=== PATIENT | male | born 1965 | race Caucasian/White ===

== ENCOUNTER 2020-08-30 09:41 | Observation (INO) | payer OTHER, SELFPAY ==
[2020-08-30] VITALS (12 sets, daily range): BP systolic 151–177; BP diastolic 82–94; PULSE 61–72; RESP 17–18; TEMP 36.4–36.8; O2SAT 96–97; BMI 29.2
[2020-08-30 11:08] LABS: Glucose Point of Care 318 mg/dL (70-110)
--- NOTE | 2020-08-30 12:44 | PM.HP ---
Providers/Chief Complaint Admitting Physician: Annmarie Au MD Chief Complaint: TIA History of Present Illness Vadim Dickey Jr is a 54 year old male With a past medical history significant for diabetes mellitus, gout, and hypertension who was seen earlier today at [facility] with complaint of left facial and upper extremity numbness. Patient stated that this has been intermittently happening for the past few weeks. Lasting for short period and resolving. Stated today it was associated with an episode of dizziness. Denies any focal weakness. No facial droop. Denies any visual disturbance, no LOC. In emergency room patient had a neuro workup which included a CT head without contrast -no acute intracranial abnormality and CT angio of head and neck which showed left posterior cerebral artery P1 segment to be diminutive in caliber, left P2, P3 segments were apparent to be either hypoplastic or occluded. No large vessel aneurysm or occlusion was in neck. Patient NIH on arrival was 0. At time of my eval patient stated his symptoms had completely resolved. Denied any chest pain, dyspnea, abdominal pain. Review of Systems General: Reports: 10 or more systems reviewed and unremarkable except in HPI and below Medications/Allergies Home Medications Medication Instructions Recorded Confirmed Last Taken Type allopurinol [Zyloprim] 100 mg PO DAILY 08/30/20 08/30/20 08/29/20 History fluoxetine [Prozac] 40 mg PO DAILY 08/30/20 08/30/20 08/29/20 History glimepiride [Amaryl] 1 mg PO DAILY 08/30/20 08/30/20 08/29/20 History glimepiride [Amaryl] 2 mg PO DAILY 08/30/20 08/30/20 08/29/20 History irbesartan [Avapro] 300 mg PO DAILY 08/30/20 08/30/20 08/29/20 History pioglitazone [Actos] 15 mg PO DAILY 08/30/20 08/30/20 08/29/20 History Allergies Allergy/AdvReac Type Severity Reaction Status Date / Time iron Allergy ALGY-Anaphy Verified 08/30/20 10:56 laxis ofloxacin Allergy ALGY-Anaphy Verified 08/30/20 10:56 laxis PFSH Acute PFSH: Medical History (Updated 08/30/20 @ 17:23 by Luis Moran MD) Diabetes mellitus, type II Gout Hypertension Neuropathy Surgical History History of hernia repair S/P skin biopsy Family History Grandfather Cancer Other Diabetes Heart disease Hypercholesteremia Social History (Updated 08/30/20 @ 11:04 by Luly Palomares, ESTHER) Second hand smoke exposure: No Smoking risk assessment/counseling performed?: No Alcohol intake: current Alcohol intake frequency: few times a week Alcohol type: beer and hard liquor Desire information about alcohol rehabilitation?: No Vitals/I&O/Wt Weight last 48 hrs Weight 95.254 kg Physical Exam Narrative: EXAM NARRATIVE: General : Alert, awake, oriented x 3 HEENT: grossly unremarkable CVS; RRR Chest; CTABL Abd : soft, nt, nd Ext : no edema Neuro: Cn-12 intact, MS 5/5, no sensory deficits. Data : 08/30/20 14:11 08/30/20 14:11 A&P Assessment and plan (1) TIA (transient ischemic attack): Will rule out CVA - given onset of symptom unlikely MRI Brain w/o contrast in am Asa 81 mg PO daily Lipitor high dose for now - lipid panel in am ECHO ordered CTA - Noted in HPI Bedside swallow -if no aspiration risk - start diabetic/cardiac diet PT/OT consult Check A1c in AM NIH/Neuro-checks as ordered Status: Acute (2) Hypertension: Will allow for permissive hypertension for 24hr after the start of current episode Treat if SBP > 220 or DBP> 120 Status: Acute (3) Diabetes mellitus: With hyperglycemia Sliding scale insulin A1c in am Diabetic diet Status: Acute (4) Gout: Allopurinol 100 mg PO daily Status: Acute (5) Depression: Continue Prozac 40 mg PO daily Status: Acute (6) DVT prophylaxis: Lovenox 40 mg SQ daily Status: Acute Attestations Medical Necessity Statement*: Anticipate Less than 2 midnight stay in hospital for eval of TIA/cVa work up Time Spent in Patient Care: Greater than 35 minutes (>than 50% of time spent in counselling and/or direct pt care on unit). Coding Level of Care Code Acute Physician Ophthalmologist for [facility] Fwd Diagnoses TIA (transient ischemic attack) G45.9 Hypertension I10 Diabetes mellitus E11.9 Gout M10.9 Depression F32.9 DVT prophylaxis Z29.9
[2020-08-30 15:01] LABS: Basophils # 0.1 10^3/uL (0.0-0.1); Basophils % 0.6 %; Eosinophils # 0.1 10^3/uL (0.0-0.8); Eosinophils % 1.3 %; Hematocrit 45.4 % (42.0-52.0); Hemoglobin 14.7 g/dL (11.7-16.6); Lymphocytes # 2.5 10^3/uL (0.8-4.8); Lymphocytes % 25.4 %; Mean Corpuscular HGB Conc 32.4 g/dL (30.0-36.0); Mean Corpuscular Hemoglobin 27.9 pg (28.0-34.0); Mean Corpuscular Volume 86.1 fL (80-94); Mean Platelet Volume 10.2 fL (7.4-10.4); Monocytes # 0.7 10^3/uL (0.2-0.9); Monocytes % 6.7 %; Neutrophils # 6.34 10^3/uL (1.8-7.7); Nucleated Red Blood Cells % 0 %; Platelet Count 344 10^3/cmm (130-400); Red Blood Count 5.27 10^6/uL (4.1-5.3); Red Cell Distribution Width 12.2 % (12.1-15.1); White Blood Count 9.8 10^3/uL (4.0-10.0)
[2020-08-30 15:24] LABS: Alanine Aminotransferase 33 U/L (0-41); Alkaline Phosphatase 85 IU/L (40-130); Aspartate Amino Transferase 26 U/L (0-40); Blood Urea Nitrogen 12 mg/dL (6-20); Calcium 8.4 mg/dL (8.5-10.5); Carbon Dioxide 25 mmol/L (22-29); Chloride 101 mmol/L (98-107); Creatinine Clr Calc Pharmacy 138.8027; Globulin 2.7 g/dL (1.3-4.6); Glomerular Filtration Rate 116.7 mL/min (90-130); Glucose 329 mg/dL (65-115); Osmolality Calculated 301 mOsm/kg (285-295); Sodium 139 mmol/L (136-145); Total Bilirubin 0.2 mg/dL (0.15-1.2); Total Protein 6.7 g/dL (6.6-8.7)
[2020-08-30 15:28] LABS: Anion Gap 17.1 (5-19); Potassium 4.1 mmol/L (3.5-5.1)
[2020-08-30] MEDS: aspirin 81 mg EC Tablet PO (15:59)
[2020-08-30] MEDS: heparin 5,000 unit/mL INJ 1 mL 5000 UNIT SUBCUT (15:59)
[2020-08-30 17:24] LABS: Glucose Point of Care 175 mg/dL (70-110)
[2020-08-30] MEDS: atorvastatin 40 mg Tablet 80 MG PO (20:29)
[2020-08-30 20:58] LABS: Glucose Point of Care 245 mg/dL (70-110)
--- NOTE | 2020-08-30 21:51 | PC.NURSE ---
Upon 1999 rounding pt told nurse he had taken a dose of his home medication Glimepiride 1 mg PO with his dinner meal. Nurse explained hospital policy requires that no home medications be kept in patient rooms. The patient willingly turned over his medication to the nurse and the nurse explained his medications would be kept in the locked pyxis with his patient label and returned to him at discharge. This nurse notified shift foreman Hospitalist Dr. Au that PT had taken home medication and Dr. Au's orders were to decrease sliding scale dose of Novolog by half for this one administration. PT blood glucose noted to be 245, per sliding scale pt would normally receive 8 units of Novolog, Dr. Au ordered dose to be decreased to 4 units.
[2020-08-31] VITALS (7 sets, daily range): BP systolic 159–175; BP diastolic 77–92; PULSE 65–85; RESP 16–18; TEMP 36.4–37.7; O2SAT 95–99
[2020-08-31] MEDS: acetaminophen 325 mg Tablet 650 MG PO (00:16)
[2020-08-31] MEDS: heparin 5,000 unit/mL INJ 1 mL 5000 UNIT SUBCUT ×2 (03:31→15:08)
--- NOTE | 2020-08-31 06:00 | USCV_ITS ---
Vadim Dickey Age: 54 Gender: M : 1965 Exam Date: 08/31/2020 06:23 Ordering Phys: Luis Moran MD Technologist: Exam Location: [facility] [place] Indication: TIA BP: 175 / 77 HR: 64 Rhythm: Sinus Technical Quality: Fair MEASUREMENTS (Male / Female) Normal Values 2D ECHO LV Diastolic Diameter PLAX 3.6 cm 4.2 - 5.9 / 3.9 - 5.3 cm LV Systolic Diameter PLAX 2.1 cm IVS Diastolic Thickness 1.1 cm 0.6 - 1.0 / 0.6 - 0.9 cm IVS Systolic Thickness 1.2 cm LVPW Diastolic Thickness 1.0 cm 0.6 - 1.0 / 0.6 - 0.9 cm LVPW Systolic Thickness 1.4 cm LVOT Diameter 2.2 cm LV Ejection Fraction 2D Teich 74.4 % LV Ejection Fraction MOD 2C 46.3 % LV Ejection Fraction 2C AL 47.2 % LA Diameter 3.2 cm LA Width 3.9 cm LA Height 4.9 cm RA Width 4.0 cm RA Height 5.5 cm Aorta at Sinotubular Diameter 2.7 cm DOPPLER AV Peak Velocity 119.0 cm/s LVOT Peak Velocity 101.0 cm/s AV Area Cont Eq vti 3.8 cm squared AV Area Cont Eq pk 3.1 cm squared MV Area PHT 3.7 cm squared Mitral E to A Ratio 0.8 MV E' Velocity 48.5 cm/s Mitral E to MV E' Ratio 10.1 Mitral E to LV E' Lateral Ratio 7.9 Mitral E to LV E' Septal Ratio 14.0 TR Peak Velocity 122.7 cm/s TR Peak Gradient 6.0 mmHg TV Peak E Velocity 90.0 cm/s Right Atrial Pressure 3.0 mmHg Pulmonary Artery Systolic Pressu 9.0 mmHg PV Peak Velocity 93.0 cm/s RV Acceleration Time 0.1 s FINDINGS Left Ventricle Normal left ventricular size and systolic function, EF 55 %. No regional wall motion abnormalities. Grade I/IV diastolic dysfunction (abnormal relaxation filling pattern), normal to mildly elevated filling pressures. Right Ventricle Normal right ventricular size and systolic function. Right Atrium Normal right atrial size. Left Atrium Normal left atrial size. Mitral Valve Thickened mitral valve. Aortic Valve Thickened aortic valve. Tricuspid Valve No gross abnormalities noted Pulmonic Valve No gross abnormalities noted Pericardium No pericardial effusion. Aorta Normal aortic annulus size. CONCLUSIONS Normal left ventricular size and systolic function, EF 55 %. No regional wall motion abnormalities. Grade I/IV diastolic dysfunction (abnormal relaxation filling pattern), normal to mildly elevated filling . Minimally thickened aortic and mitral valves. No significant stenotic or regurgitant lesions. There is no pericardial effusion. There are no intracardiac masses. No previous study is available for comparison. Dr Meli Yap MD [facility] (Electronically Signed) Final Date: 31 August 2020 18:32 S
--- NOTE | 2020-08-31 06:00 | USCV_ITS ---
Vadim Dickey Age: 54 Gender: M : 1965 Exam Date: 08/31/2020 06:40 Ordering Phys: Luis Moran MD Technologist: Exam Location[place] [facility] [place]: TIA Risk Factors: None Previous Vascular Surgery: Right Brachial BP: / Left Brachial BP: / Right Left Velocity (cm/s) Spectral Plaque Velocity (cm/s) Spectral Plaque Syst/Diast Broadening Syst/Diast Broadening 70.60/ 22.10 Prox CCA 51.20 / 13.60 56.45/ 16.45 Mid CCA 50.80 / 12.30 44.70/ 8.50 Distal CCA 50.00 / 12.70 54.60/ 10.90 Prox ICA 44.90 / 7.60 61.60/ 23.40 Mid ICA 61.00 / 17.40 49.90/ 12.45 Distal ICA 58.90 / 17.40 78.70 ECA 50.40 0.87 ICA/CCA 1.19 Antegrade Vertebral Antegrade 39.00/ 12.00 cm/s 50.00/ 9.00 cm/s Tri Subclavian Tri 756.0 83.00 0 FINDINGS Intimal thickening in the common carotid and internal carotid arteries bilaterally. No unstable plaques or lesions noted. Doppler flow velocities. Antegrade flow in the vertebral arteries bilaterally Technically somewhat difficult study because of the poor Doppler signals. CONCLUSIONS Intimal thickening in the common carotid internal carotid arteries bilaterally. No unstable plaques or lesions. No significant stenosis, based on the above findings Technically somewhat difficult study Dr Meli Yap MD [facility] (Electronically Signed) Final Date: 01 September 2020 09:27 S
[2020-08-31 06:34] LABS: Glucose Point of Care 148 mg/dL (70-110)
[2020-08-31 07:16] LABS: Chol HDL Ratio 5.39 mg/dL (1.0-5.00); Cholesterol 151 mg/dL (0-200); HDL Cholesterol 28 mg/dL (60-100); LDL Cholesterol Calculated 59 mg/dL (50-129); LDL HDL Ratio 2.11 RATIO (0.00-3.22); Triglycerides 319 mg/dL (0-150)
[2020-08-31] MEDS: aspirin 81 mg EC Tablet PO (07:59)
[2020-08-31 08:02] LABS: Estmated Average Glucose 214; Hemoglobin A1C 9.1 % (4.0-6.0)
--- NOTE | 2020-08-31 08:25 | PC.OT ---
OT screen completed. Pt independently ambulated from bed to bathroom, donned shoes including tying, washed hands at sink. No loss of balance, no devices needed. No further OT recommended at this time.
--- NOTE | 2020-08-31 09:55 | MRR_ITS ---
PROCEDURE INFORMATION: Exam: MR Head Without Contrast Exam date and time: 08/31/2020 9:55 AM Age: 54 years old Clinical indication: Other: TIA TECHNIQUE: Imaging protocol: MR of the head without contrast. COMPARISON: CT head wo con* [id number] 08/30/2020 12:57 AM FINDINGS: Brain: Mild cortical volume loss. Mild scattered foci of increased T2 FLAIR signal in supratentorial white matter. No diffusion restriction. No intracranial hemorrhage. Cerebral ventricles: Normal. No ventriculomegaly. Bones/joints: Unremarkable. Paranasal sinuses: Mild mucosal thickening in the frontal and ethmoid sinuses. No air-fluid level. Mastoid air cells: Normal as visualized. No mastoid effusion. Orbital cavity: Unremarkable. Soft tissues: Unremarkable. Other vasculature: Normal intracranial arterial and venous flow voids. MR/MR head wo con* [id number] IMPRESSION: 1. No acute intracranial abnormality.
--- NOTE | 2020-08-31 10:40 | PC.NUTR ---
Nutrition consult: Provided nutrition education on mini-stroke nutrition therapy as well as Carbohydrate Counting for DM. Pt was receptive to information, and may benefit from further education. Recommend outpatient RD services if consistent with plan of care. Recommend increased intake of non-starchy vegetables and high fiber foods due to pt c/o feeling hungry.
[2020-08-31 11:50] LABS: Glucose Point of Care 187 mg/dL (70-110)
--- NOTE | 2020-08-31 13:16 | PC.CHAP ---
Pastoral Care Encounter/Spiritual Assessment Type of Contact [] Declined experimental assembler visit [] Patient/Family/Request visit [] Outpatient visit [x] Follow-up visit [] Physician referral [] Code/Alert [] Routine visit [] Staff referral [] Actively dying [] Patient sleeping [] Family support [] [] Out of room [] Palliative care [] [] Receiving care in room [] Pre-surgical visit [] Trauma [] Long length of stay [] ICU visit [] Other: Relational/Emotional Strength [] Patient feels connected with others/family/visitors/staff [] Distress [] Loneliness/isolation [] Abandonment Spirituality of Patient [] Person of Renu [] Attends Mandaen of their Renu [] Believes in Prayer [] Reads Bible or Episcopal materials [] There are Spiritual issues to be addressed Precision Agriculture Technician Interventions [] Prayer [] Active listening [] Non-anxious presence [] Spiritual/emotional support [] Crisis/trauma care [] Spiritual counseling [] Bereavement support [] Provided bereavement packet [] Provided Bible/devotional materials [] Provided toy/stuffed animal, coloring book to patient or family member [] Provided Communion [] Anointing/[place] [] Salvation [] Completed spiritual assessment [] Other: Impact on Illness or Injury [] Angry [] Fearful [] Anxious [] Often cries [] Exhaustion [] Unable to work [] Unable to attend christian [] Unable to walk/stand [] Unable to read [] Unable to drive [] Unable to eat/drink [] Unable to sleep [] Unable to be with family [] Patient intubated [] Other: Summary Time spent with patient
--- NOTE | 2020-08-31 14:40 | CTR_ITS ---
PROCEDURE INFORMATION: Exam: CT Chest Without Contrast; Diagnostic Exam date and time: 08/31/2020 2:40 PM Age: 54 years old Clinical indication: Condition or disease; Lung condition and disease; Copd TECHNIQUE: Imaging protocol: Diagnostic computed tomography of the chest without contrast. Radiation optimization: All CT scans at this facility use at least one of these dose optimization techniques: automated exposure control; mA and/or kV adjustment per patient size (includes targeted exams where dose is matched to clinical indication); or iterative reconstruction. COMPARISON: No relevant prior studies available. RADIATION DOSE METRICS: Total DLP (mGy-cm): 985.21 FINDINGS: Lungs: 4 mm right middle lobe nodule, series 3, image 26. The lungs are otherwise clear. Pleural spaces: Unremarkable. No pneumothorax. No pleural effusion. Heart: Unremarkable. No cardiomegaly. No pericardial effusion. Aorta: Unremarkable. No aortic aneurysm. Lymph nodes: Unremarkable. No enlarged lymph nodes. Liver: Diffuse fatty infiltration of the liver. Pancreas: Single punctate calcification in the uncinate process of the pancreas. Otherwise unremarkable. Bones/joints: Degenerative changes of the thoracic spine with kyphosis. No compression fracture. Soft tissues: Unremarkable. CT/CT chest wo con [id number] IMPRESSION: 1. No acute finding. 2. 4 mm right middle lobe nodule. For patients at low risk (minimal or absent history of smoking and of other known risk factors), no routine follow-up is indicated. For patients at high risk (history of smoking or of other known risk factors), consider optional CT Chest at 12 months. (Reference: So) References: So Del [place], et al. Guidelines for Management of Incidental Pulmonary Nodules Detected on CT Images: From the Fleischner Society 2017. Radiology. 2017;284(1):228-243. Radiation Dose CTDIVOL = (mGy): DLP = 985.21 (mGy-cm)
--- NOTE | 2020-08-31 14:40 | CTR_ITS ---
PROCEDURE INFORMATION: Exam: CT Cervical Spine Without Contrast Exam date and time: 08/31/2020 2:40 PM Age: 54 years old Clinical indication: Numbness; Additional info: Numbness in left arm TECHNIQUE: Imaging protocol: Computed tomography images of the cervical spine without contrast. Radiation optimization: All CT scans at this facility use at least one of these dose optimization techniques: automated exposure control; mA and/or kV adjustment per patient size (includes targeted exams where dose is matched to clinical indication); or iterative reconstruction. COMPARISON: CTA Head/Neck [id number] 08/30/2020 1:04 AM RADIATION DOSE METRICS: Total DLP (mGy-cm): 767.56 FINDINGS: Vertebrae: The vertebral body alignment and stature is normal. No subluxation. The facets are intact with mild degenerative changes. C2-C3: No significant disc protrusion. No severe spinal canal stenosis. No significant neural foraminal narrowing. C3-C4: No significant disc protrusion. No severe spinal canal stenosis. No significant neural foraminal narrowing. C4-C5: Posterior disc bulge. Moderate central canal stenosis. Mild bilateral foraminal stenosis. C5-C6: Posterior disc bulge with posterior endplate spurring. Mild central canal stenosis. Moderate left and mild right foraminal stenosis. C6-C7: No disc bulge. Mild bilateral bony foraminal stenosis. C7-T1: No significant disc protrusion. No severe spinal canal stenosis. No significant neural foraminal narrowing. Soft tissues: Unremarkable. Thyroid: Low-density nodules or cysts in the right thyroid lobe measuring up to 1.0 cm. Ultrasound follow-up is not recommended. Lungs: Lung apices are normal. CT/CT cervical spin wo con* [id number] IMPRESSION: 1. No fracture or acute finding. 2. Degenerative changes at C4-C5 and C5-C6 as described. COMMENTS: Consistent with the [employer]'s Incidental Findings Committee white paper (J Am Percy Radiol 2015): In patients aged 35 years and older with an incidental thyroid nodule equal to or greater than 1.[address], MRI or extrathyroidal US, further evaluation with dedicated thyroid US is recommended for patients with normal life expectancy and without comorbidities. For smaller nodules without suspicious features, no further evaluation or follow up is recommended. Radiation Dose CTDIVOL = (mGy): DLP = 767.56 (mGy-cm)
[2020-08-31] MEDS: carvedilol 6.25 mg Tablet PO ×2 (15:18→18:27)
[2020-08-31] MEDS: losartan 50 mg Tablet 100 MG PO (15:18)
[2020-08-31 17:05] LABS: Glucose Point of Care 148 mg/dL (70-110)
--- NOTE | 2020-08-31 17:50 | PM.PN ---
Subjective Subjective: Interval history: Hospital course, labs appreciated. No acute events overnight. Patient has not had any further events of numbness. denies any nausea vomiting, headache. Vitals/I&O/Wt Last Vital Signs Temp 99.3 F 08/31/20 15:16 Pulse 84 08/31/20 15:16 Resp 18 08/31/20 15:16 BP 166/90 08/31/20 15:18 Pulse Ox 95 08/31/20 15:16 08/31/20 08/31/20 08/31/20 06:59 14:59 22:59 Intake Total 480 / 1320 720 / 720 Balance 480 / 1320 720 / 720 Weight last 48 hrs Weight 95.254 kg Physical Exam Narrative: EXAM NARRATIVE: General : Alert, awake, oriented x 3 HEENT: grossly unremarkable CVS; RRR Chest; CTABL Abd : soft, nt, nd Ext : no edema Neuro: Cn-12 intact, MS 5/5, no sensory deficits. Data : 08/30/20 14:11 08/30/20 14:11 A&P Assessment and plan (1) TIA (transient ischemic attack): Will rule out CVA - given onset of symptom unlikely Awaiting MRI. Echocardiogram done. Results awaited. Carotid Doppler done awaiting his results. Continue with aspirin, statin. Monitor lipid panel. Check HbA1c. PT/OT evaluation. Status: Acute (2) Hypertension: Goal of pressure less than 140/90 mmHg. Continue with home dose of Cozaar. Start patient on Coreg 6.25 mg twice daily. Status: Acute (3) Diabetes mellitus: HbA1c 9.1. Discussed that patient is on 3 hypoglycemics including high-dose Amaryl, pioglitazone and Metformin. Given his A1c is still more than night he requires to be on insulin. Patient states he would like to discuss with his primary care provider before starting insulin. For now continue with insulin sliding scale. Status: Acute (4) Gout: Allopurinol 100 mg PO daily Status: Acute (5) Depression: Continue Prozac 40 mg PO daily Status: Acute (6) DVT prophylaxis: Lovenox 40 mg SQ daily Status: Acute (7) Tingling of left upper extremity: Can be secondary to TIA. But cannot rule out cervical radiculopathy. Check CT cervical spine to rule out degenerative disorder, CT chest to rule out Pancoast tumor Status: Acute Attestations Medical Necessity Statement*: Patient requires further hospitalization for further management of TIA, possible cervical spondylosis while MRI is awaited Time Spent in Patient Care: Greater than 35 minutes (>than 50% of time spent in counselling and/or direct pt care on unit). Coding Level of Care Code Acute Angle Dozer Operator for g Fwd Diagnoses TIA (transient ischemic attack) G45.9 Hypertension I10 Diabetes mellitus E11.9 Gout M10.9 Depression F32.9 DVT prophylaxis Z29.9 Tingling of left upper extremity R20.2
--- NOTE | 2020-08-31 19:35 | P.DS_ITS ---
Discharge Providers Date of Admission: 08/30/20 09:41 Date of Discharge: August 31, 2020 Attending Provider at Admission: Annmarie Au MD Attending Provider at Discharge: Gómez Herrera MD Diagnoses at Discharge Discharge Diagnosis (1) TIA (transient ischemic attack): Status: Acute (2) Hypertension: Status: Acute (3) Diabetes mellitus: Status: Acute (4) Gout: Status: Acute (5) Depression: Status: Acute (6) DVT prophylaxis: Status: Acute (7) Tingling of left upper extremity: Status: Acute Reason for Visit Reason for Visit: TIA Hospital Course Hospital Course Vadim Dickey Jr is a 54 year old male With a past medical history significant for diabetes mellitus, gout, and hypertension who was seen earlier today at [facility] with complaint of left facial and upper extremity numbness. Patient stated that this has been intermittently happening for the past few weeks. Lasting for short period and resolving. Stated today it was associated with an episode of dizziness. Denies any focal weakness. No facial droop. Denies any visual disturbance, no LOC. In emergency room patient had a neuro workup which included a CT head without contrast -no acute intracranial abnormality and CT angio of head and neck which showed left posterior cerebral artery P1 segment to be diminutive in caliber, left P2, P3 segments were apparent to be either hypoplastic or occluded. No large vessel aneurysm or occlusion was in neck. Patient NIH on arrival was 0. At time of my eval patient stated his symptoms had completely resolved. Denied any chest pain, dyspnea, abdominal pain. TIA workup negative. Symptoms likely 2/2 cervical degeneration. Recommended for PT as outpatient. Found to have uncontrolled HTN and DM. Anti hypertensive adjusted. Patient advised to start on insulin as already on 3 OHAs, would want to discuss with PCP. Ut'ed in stable condition. Physical Exam Narrative: EXAM NARRATIVE: General : Alert, awake, oriented x 3 HEENT: grossly unremarkable CVS; RRR Chest; CTABL Abd : soft, nt, nd Ext : no edema Neuro: Cn-12 intact, MS 5/5, no sensory deficits. Discharge Data Data Completed and Pending: Completed Studies During Hospitalization Category Date Time Status CT cervical spin wo con* [id number] Rout ine Cat Scan 08/31/20 14:[address] chest wo con 7 1250 Routine Cat Scan 08/31/20 14:40 Completed MR head wo con* 7 0551 Routine MRI 08/31/20 09:55 Completed CV echo complete* [id number] Routine Ultrasound 08/31/20 06:00 Completed Pending at discharge Category Date Time Status CV carotid duplex BI* [id number] Routine Ultrasound 08/31/20 06:00 Taken Labs from last 24 hours 08/31/20 08/31/20 08/31/20 16:55 11:44 06:30 POC Glucose 148 H 187 H 148 H Estimat Average Gl ucose Hemoglobin A1c Triglycerides Cholesterol LDL Cholesterol, C alc HDL Cholesterol LDL/HDL Ratio Cholesterol/HDL Ra santiago 08/31/20 08/31/20 08/30/20 05:51 05:51 20:53 POC Glucose 245 H Estimat Average Gl ucose Cancelled Hemoglobin A1c Cancelled Triglycerides 319 H Cholesterol 151 LDL Cholesterol, C alc 59 HDL Cholesterol 28 L LDL/HDL Ratio 2.11 Cholesterol/HDL Ra santiago 5.39 H 08/30/20 14:11 POC Glucose Estimat Average Gl ucose 214 Hemoglobin A1c 9.1 H Triglycerides Cholesterol LDL Cholesterol, C alc HDL Cholesterol LDL/HDL Ratio Cholesterol/HDL Ra santiago Addt'l Data from Hospital Stay: Laboratory Results WBC 9.8 10^3/uL (4.0- 10.0) 08/30/20 14:11 RBC 5.27 10^6/uL (4.1 -5.3) 08/30/20 14:11 Hgb 14.7 g/dL (11.7-1 6.6) 08/30/20 14:11 Hct 45.4 % (42.0-52.0 ) 08/30/20 14:11 MCV 86.1 fL (80-94) 08/30/20 14:11 MCH 27.9 pg (28.0-34. 0) L 08/30/20 14:11 MCHC 32.4 g/dL (30.0-3 6.0) 08/30/20 14:11 RDW 12.2 % (12.1-15.1 ) 08/30/20 14:11 Plt Count 344 10^3/cmm (130 -400) 08/30/20 14:11 MPV 10.2 fL (7.4-10.4 ) 08/30/20 14:11 Neut % (Auto) 65.0 % 08/30/20 14:11 Lymph % (Auto) 25.4 % 08/30/20 14:11 Whitman % (Auto) 6.7 % 08/30/20 14:11 Eos % (Auto) 1.3 % 08/30/20 14:11 Baso % (Auto) 0.6 % 08/30/20 14:11 Neut # (Auto) 6.34 10^3/uL (1.8 -7.7) 08/30/20 14:11 Lymph # (Auto) 2.5 10^3/uL (0.8- 4.8) 08/30/20 14:11 Whitman # (Auto) 0.7 10^3/uL (0.2- 0.9) 08/30/20 14:11 Eos # (Auto) 0.1 10^3/uL (0.0- 0.8) 08/30/20 14:11 Baso # (Auto) 0.1 10^3/uL (0.0- 0.1) 08/30/20 14:11 Nucleated RBC % (a uto) 0 % 08/30/20 14:11 Nucleated RBCs # 0.0 /100WBC 08/30/20 14:11 Sodium 139 mmol/L (136-1 45) 08/30/20 14:11 Potassium 4.1 mmol/L (3.5-5 .1) 08/30/20 14:11 Chloride 101 mmol/L (98-10 7) 08/30/20 14:11 Carbon Dioxide 25 mmol/L (22-29) 08/30/20 14:11 Anion Gap 17.1 (5-19) 08/30/20 14:11 BUN 12 mg/dL (6-20) 08/30/20 14:11 Creatinine 0.7 mg/dL (0.7-1. 2) 08/30/20 14:11 GFR Calculation 116.7 mL/min (90- 130) 08/30/20 14:11 Glucose 329 mg/dL (65-115 ) H 08/30/20 14:11 POC Glucose 148 mg/dL (70-110 ) H 08/31/20 16:55 Estimat Average Gl ucose Cancelled 08/31/20 05:51 Hemoglobin A1c Cancelled 08/31/20 05:51 Calculated Osmolal ity 301 mOsm/kg (285- 295) H 08/30/20 14:11 Calcium 8.4 mg/dL (8.5-10 .5) L 08/30/20 14:11 Total Bilirubin 0.2 mg/dL (0.15-1 .2) 08/30/20 14:11 AST 26 U/L (0-40) 08/30/20 14:11 ALT 33 U/L (0-41) 08/30/20 14:11 Alkaline Phosphata se 85 IU/L (40-130) 08/30/20 14:11 Total Protein 6.7 g/dL (6.6-8.7 ) 08/30/20 14:11 Albumin 4.0 g/dL (3.5-5.2 ) 08/30/20 14:11 Globulin 2.7 g/dL (1.3-4.6 ) 08/30/20 14:11 Triglycerides 319 mg/dL (0-150) H 08/31/20 05:51 Cholesterol 151 mg/dL (0-200) 08/31/20 05:51 LDL Cholesterol, C alc 59 mg/dL (50-129) 08/31/20 05:51 HDL Cholesterol 28 mg/dL (60-100) L 08/31/20 05:51 LDL/HDL Ratio 2.11 RATIO (0.00- 3.22) 08/31/20 05:51 Cholesterol/HDL Ra santiago 5.39 mg/dL (1.0-5 .00) H 08/31/20 05:51 Impressions Head MRI 08/31/20 09:55 IMPRESSION: 1. No acute intracranial abnormality. Cervical Spine CT 08/31/20 14:40 IMPRESSION: 1. No fracture or acute finding. 2. Degenerative changes at C4-C5 and C5-C6 as described. COMMENTS: Consistent with the [employer]'s Incidental Findings Committee white paper (J Am Percy Radiol 2015): In patients aged 35 years and older with an incidental thyroid nodule equal to or greater than 1.[address], MRI or extrathyroidal US, further evaluation with dedicated thyroid US is recommended for patients with normal life expectancy and without comorbidities. For smaller nodules without suspicious features, no further evaluation or follow up is recommended. Radiation Dose CTDIVOL = (mGy): DLP = 767.56 (mGy-cm) Chest CT 08/31/20 14:40 IMPRESSION: 1. No acute finding. 2. 4 mm right middle lobe nodule. For patients at low risk (minimal or absent history of smoking and of other known risk factors), no routine follow-up is indicated. For patients at high risk (history of smoking or of other known risk factors), consider optional CT Chest at 12 months. (Reference: So) References: So [place], et al. Guidelines for Management of Incidental Pulmonary Nodules Detected on CT Images: From the [employer]isch[employer] Society 2017. Radiology. 2017;284(1):228-243. Radiation Dose CTDIVOL = (mGy): DLP = 985.21 (mGy-cm) ADDENDUM: 08/31/20 0764 Additional lung findings: Suspected centrilobular emphysema. Radiation Dose CTDIVOL = (mGy): DLP = 985.21 (mGy-cm) Vitals: Last Vital Signs Temp 99.3 F 08/31/20 15:16 Pulse 84 08/31/20 15:16 Resp 18 08/31/20 15:16 BP 166/90 08/31/20 15:18 Pulse Ox 95 08/31/20 15:16 Discharge Plan Discharge Patient Disposition: Home Condition: Stable Prescriptions: New aspirin 81 mg Tablet,Delayed Release (Dr/Ec) 81 mg PO DAILY Qty: 30 RF: 0 atorvastatin 40 mg Tablet 40 mg PO BEDTIME Qty: 30 RF: 0 carvedilol 6.25 mg Tablet 6.25 mg PO BID 30 Days Qty: 60 RF: 0 Continued Zyloprim 100 mg tablet 100 mg PO DAILY RF: 0 fluoxetine [Prozac] 20 mg capsule 40 mg PO DAILY RF: 0 Avapro 300 mg tablet 300 mg PO DAILY RF: 0 Actos 15 mg tablet 15 mg PO DAILY RF: 0 Amaryl 1 mg tablet 1 mg PO DAILY RF: 0 Amaryl 2 mg tablet 2 mg PO DAILY RF: 0 Discharge Orders: Discharge Order (Routine); Ordered 08/31/20 Ordered By: Gómez Herrera Other Ambulatory Orders: Physical Therapy Eval and Treat Outpatient (Order) Timeframe: 1 Week Facility: [facility] [place] - Location: Physical Therapy Ordered By: Gómez Herrera Discharge Diet: Cardiac Discharge Activity: Resume usual activity Patient Instructions: Aspirin (By mouth), Atorvastatin (By mouth), Carvedilol (By mouth), Transient Ischemic Attack (DC), Opioid Safety Discharge Attestations Time Spent in Discharge Care*: greater than 30 min Specific Discharge Activities: educating patient, discussing with pcp/other providers, discussing with case management specialist/social workers/dc planners, documenting/other paperwork and evaluating patient/reviewing data Status at Discharge: Cognitive status at discharge: cognitively intact , Behavioral status at discharge: cooperative , Functional status at discharge: independent ambulation Overall status at discharge: patient is back to baseline Quality Metrics Clinical Quality Measures During this hospital stay, did patient experience: None Coding Level of Care Code Acute Chg FW DC note Diagnoses TIA (transient ischemic attack) G45.9 Hypertension I10 Diabetes mellitus E11.9 Gout M10.9 Depression F32.9 DVT prophylaxis Z29.9 Tingling of left upper extremity R20.2
--- NOTE | 2020-08-31 19:58 | PC.NURSE ---
THIS NURSE SENT HOME MEDICATIONS BACK HOME WITH PATIENT.
== END 2020-08-31 19:59 | disposition home or self-care (01) ==
PROVIDERS: Hospitalist; Admitting Provider Internal Medicine; Visit Provider Student in an Organized Health Care Education/Training Program
DX: G45.9 Transient cerebral ischemic attack, unspecified (principal); I10 Essential (primary) hypertension; M10.9 Gout, unspecified; F32.9 Major depressive disorder, single episode, unspecified; Z29.9 Encounter for prophylactic measures, unspecified; R20.2 Paresthesia of skin; E11.40 Type 2 diabetes mellitus with diabetic neuropathy, unspecified
CPT/HCPCS: 36415; 36416; 70551; 71250; 72125; 80053; 80061; 82962; 83036; 85025; 92523; 92610; 93306; 93880; 96372; G0378; G0379; J1644; J1815

== ENCOUNTER → 2020-10-12 15:10 | Outpatient (BNVA) | payer OTHER, SELFPAY | PROVIDERS: PCP Physician Assistant Medical; Visit Provider Specialist | DX: G56.03 Carpal tunnel syndrome, bilateral upper limbs (principal); G62.89 Other specified polyneuropathies | CPT/HCPCS: 95908; 95909 ==